=== PATIENT | female | born 1955 | race Caucasian/White ===

== ENCOUNTER 2018-06-30 01:55 | Outpatient (CLI) | payer BC, SELFPAY ==
--- NOTE | 2018-06-30 11:20 | DI.MAMMO_ITS ---
SYMPTOM/DIAGNOSIS: SCREENING, Z12.31 MAMMOGRAMS: Mammograms were interpreted according to the usual protocol including computer analysis with CAD system, tomosynthesis and C view imaging. Comparison is made with exams from [id number]. The breasts are composed of scattered fibroglandular densities. No suspicious masses or suspicious microcalcifications are seen. There has been no significant change. IMPRESSION: Category 1B, negative mammogram. Yearly screening mammography is recommended. SA ASSESSMENT OF FINDINGS: Negative. Category 1. Patient will receive a letter notifying them of these results. BI-RADS category B. There are scattered areas of fibroglandular density.
== END 2018-06-30 02:15 ==
PROVIDERS: PCP Family Medicine; Visit Provider Family Medicine
DX: Z12.31 Encounter for screening mammogram for malignant neoplasm of breast (principal)
CPT/HCPCS: 77063; 77067

== ENCOUNTER 2018-11-05 09:35 | Outpatient (REF) | payer OTHER, SELFPAY ==
--- NOTE | 2018-11-05 08:30 | PAPFT_PTH ---
PATIENT: Jade Oro LOC: [facility] U#:[id number] AGE/SX: 62/F ROOM: RE11/05/[address]: Angélica Koch : 1955 BED: DIS: 11/05/2018 SPEC #: [id number] RECD: 11/05/18 12:23 STATUS: DAVID REKeshia #: [id number] WINSTON: 11/05/18 08:[address]: Angélica Koch DEPT: REPLACED BY [facility] Cytology RECD BY: Radha Cain Tissues: 1 - CX/ENDOCX FOR PAP SMEARS Procedures: PAP THIN PREP/[facility] Screening HPV DNA PROBE Comments: [id number]
[2018-11-05 12:40] LABS: HCT 38.9 % (36.0-46.0); HGB 12.9 g/dL (12.0-15.5); Mean Corp. HGB Concentration 33.2 g/dL (32.0-36.0); Mean Corpuscular Hemoglobin 31.5 pg (27.0-33.0); Mean Corpuscular Volume 94.9 fL (80-95); Mean Platelet Volume 10.5 fL (8.0-11.0); Platelet Count 212 x1000/uL (130-400); RBC Distribution Width 12.9 % (11.7-14.6); White Blood Cell Count 7.59 k/cumm (4.4-10.8)
[2018-11-05 13:01] LABS: COMMENT (LAB VIEW ONLY) 120.05 mg/dL; Microalb ug/mg Crea 193.8 ug/mg Cr
[2018-11-05 13:06] LABS: ALT 51 U/L (12-78); AST 30 U/L (15-37); Albumin 4.2 g/dL (3.4-5.0); Alkaline Phosphatase 87 U/L (46-116); BUN 25 mg/dL (7-18); Bilirubin, Total 0.2 mg/dL (0.2-1.0); CREATININE 1.11 mg/dL (0.55-1.02); Calcium 9.9 mg/dL (8.5-10.1); Chloride 101 mmol/L (98-107); Estimated GFR 49.64 (mL/min/1.73m2); Glucose 233 mg/dL (70-100); Potassium 5.2 mmol/L (3.5-5.1); Sodium 139 mmol/L (136-145); TSH (W/Ref FT4) 5.49 uIU/mL (0.358-3.74); Total Protein 7.8 g/dL (6.4-8.2); Vitamin B12 287 pg/mL (193-986)
== END 2018-11-05 09:55 ==
LOC: NCHCN 09:35
PROVIDERS: PCP Family Medicine; Visit Provider Family Medicine
DX: R53.83 Other fatigue (principal); E11.65 Type 2 diabetes mellitus with hyperglycemia; Z12.4 Encounter for screening for malignant neoplasm of cervix; Z11.51 Encounter for screening for human papillomavirus (HPV)
CPT/HCPCS: 80053; 82306; 85027; 88142; 82043; 82570; 82607; 84439; 84443; 87624

== ENCOUNTER 2019-09-16 13:34 | Outpatient (REF) | payer OTHER, SELFPAY ==
[2019-09-16 19:06] LABS: Microalb ug/mg Crea 95.6 ug/mg Cr
== END 2019-09-16 13:54 ==
LOC: NCHCN 13:34
PROVIDERS: PCP Family Medicine; Visit Provider Family Medicine
DX: E11.65 Type 2 diabetes mellitus with hyperglycemia (principal)
CPT/HCPCS: 82043; 82570

== ENCOUNTER 2020-01-11 02:27 | Outpatient (CLI) | payer OTHER, SELFPAY ==
[2020-01-11 12:23] LABS: HCT 37.7 % (36.0-46.0); HGB 12.6 g/dL (12.0-15.5); Mean Corp. HGB Concentration 33.4 g/dL (32.0-36.0); Mean Corpuscular Hemoglobin 30.7 pg (27.0-33.0); Mean Corpuscular Volume 91.7 fL (80-95); Mean Platelet Volume 9.7 fL (8.0-11.0); Platelet Count 235 x1000/uL (130-400); RBC 4.11 m/cumm (4.00-5.20); RBC Distribution Width 12.3 % (11.7-14.6); White Blood Cell Count 6.22 k/cumm (4.4-10.8)
[2020-01-11 13:09] LABS: Hemoglobin A1C 9.7 % (3.8-5.6)
[2020-01-11 14:46] LABS: Anion Gap 9.4 mmol/L (3-11); BUN 23 mg/dL (7-18); CO2 26.6 mmol/L (21.0-32.0); CREATININE 1.06 mg/dL (0.55-1.02); Calcium 9.6 mg/dL (8.5-10.1); Calculated LDL 74 mg/dL (<100); Chloride 102 mmol/L (98-107); Cholesterol 136 mg/dL (<200); Estimated GFR 52.03 (mL/min/1.73m2); Glucose 226 mg/dL (74-106); HDL Cholesterol 36 mg/dL (40-60); Sodium 138 mmol/L (136-145); TSH (W/Ref FT4) 2.12 uIU/mL (0.36-3.74); Triglyceride 134 mg/dL (<150)
== END 2020-01-11 02:47 ==
PROVIDERS: PCP Family Medicine; Visit Provider Family Medicine
DX: E03.9 Hypothyroidism, unspecified (principal); E11.65 Type 2 diabetes mellitus with hyperglycemia; E78.5 Hyperlipidemia, unspecified; I10 Essential (primary) hypertension; N18.3 Chronic kidney disease, stage 3 (moderate)
CPT/HCPCS: 36415; 80048; 80061; 85027; 83036; 84443

== ENCOUNTER 2020-01-12 16:30 | Outpatient (REF) | payer OTHER, SELFPAY ==
[2020-01-12 20:39] LABS: Vitamin B12 496 pg/mL (193-986)
== END 2020-01-12 16:50 ==
LOC: NCHCN 16:30
PROVIDERS: PCP Family Medicine; Visit Provider Family Medicine
DX: E53.8 Deficiency of other specified B group vitamins (principal)
CPT/HCPCS: 82607

== ENCOUNTER 2020-02-07 01:25 | Outpatient (CLI) | payer OTHER, SELFPAY ==
--- NOTE | 2020-02-07 | DI.MAMMO_ITS ---
EXAM: MAMMO SCREENING CLINICAL HISTORY: SCREENING,Z12.31 TECHNIQUE: Mammograms were interpreted according to the usual protocol including computer analysis w [employer] CAD system, tomosynthesis and C-view imaging. COMPARISON: 2013 through 2017 FINDINGS: The breasts are composed of scattered fibroglandular densities, Breast Density category B. No suspicious masses or suspicious microcalcifications are seen. No skin thickening or abnormal axillary lymph nodes are seen. There has been no significant change from prior exams. IMPRESSION: BI-RADS Category 1, negative mammogram. Yearly screening mammography is recommended. Breast Density Category B, scattered fibroglandular densities.
== END 2020-02-07 01:45 ==
PROVIDERS: PCP Family Medicine; Visit Provider Family Medicine
DX: Z12.31 Encounter for screening mammogram for malignant neoplasm of breast (principal); R92.2 Inconclusive mammogram
CPT/HCPCS: 77063; 77067

== ENCOUNTER 2020-08-04 02:24 | Outpatient (CLI) | payer OTHER, SELFPAY ==
[2020-08-04 07:44] LABS: Hemoglobin A1C 6.7 % (<5.7)
[2020-08-04 08:48] LABS: Anion Gap 13.1 mmol/L (3-11); BUN 21 mg/dL (7-18); CO2 27.9 mmol/L (21.0-32.0); CREATININE 0.96 mg/dL (0.55-1.02); Calcium 8.8 mg/dL (8.5-10.1); Chloride 101 mmol/L (98-107); Estimated GFR 58.33 (mL/min/1.73m2); Glucose 108 mg/dL (74-106); Potassium 4.2 mmol/L (3.5-5.1); Sodium 142 mmol/L (136-145); TSH (W/Ref FT4) 1.03 uIU/mL (0.36-3.74)
== END 2020-08-04 02:44 ==
PROVIDERS: PCP Family Medicine; Visit Provider Family Medicine
DX: I10 Essential (primary) hypertension (principal); E11.65 Type 2 diabetes mellitus with hyperglycemia; E03.9 Hypothyroidism, unspecified
CPT/HCPCS: 36415; 80048; 83036; 84443

== ENCOUNTER 2021-08-29 15:21 | Outpatient (REF) | payer OTHER, SELFPAY ==
[2021-08-29 20:05] LABS: COMMENT (LAB VIEW ONLY) 232.57 mg/dL
[2021-08-29 20:11] LABS: Anion Gap 9.3 mmol/L (3-11); BUN 21 mg/dL (7-18); CO2 29.7 mmol/L (21.0-32.0); CREATININE 0.9 mg/dL (0.55-1.02); Calcium 9.7 mg/dL (8.5-10.1); Chloride 97 mmol/L (98-107); Glucose 99 mg/dL (74-106); Potassium 4.1 mmol/L (3.5-5.1); Sodium 136 mmol/L (136-145); TSH (W/Ref FT4) 3.01 uIU/mL (0.36-3.74)
[2021-08-29 20:40] LABS: Microalb ug/mg Crea 254.5 ug/mg Cr
[2021-08-31 10:52] LABS: HIV-1/2 Ag & Ab Screen Negative (Negative)
== END 2021-08-29 15:22 | disposition home or self-care (01) ==
LOC: NCHCN 15:21
PROVIDERS: PCP Family Medicine; Visit Provider Family Medicine
DX: E11.9 Type 2 diabetes mellitus without complications (principal); I10 Essential (primary) hypertension; E03.9 Hypothyroidism, unspecified; N18.30 Chronic kidney disease, stage 3 unspecified; Z00.00 Encounter for general adult medical examination without abnormal findings; Z11.4 Encounter for screening for human immunodeficiency virus [HIV]
CPT/HCPCS: 80048; 87389; 82043; 82570; 84443

== ENCOUNTER → 2021-12-07 00:38 | Outpatient (CLI) | payer OTHER, SELFPAY ==
--- NOTE | 2021-12-07 | DI.MAMMO_ITS ---
Exam(s) MAMMO SCREENING EXAM: MAMMO SCREENING CLINICAL HISTORY: SCREENING, Z12.31 TECHNIQUE: Mammograms were interpreted according to the usual protocol including computer analysis w [employer] CAD system, tomosynthesis and C-view imaging. COMPARISON: 2013 through 2019 FINDINGS: The breasts are composed of scattered fibroglandular densities, Breast Density category B. No suspicious masses or suspicious microcalcifications are seen. No skin thickening or abnormal axillary lymph nodes are seen. There has been no significant change from prior exams. IMPRESSION: BI-RADS Category 1, Negative mammogram Yearly screening mammography is recommended. Breast Density - Category B, scattered fibroglandular densities. A negative radiographic report should not delay biopsy if a dominant or clinically suspicious mass is present. Up to ten percent of cancers are not identified on mammography. A negative report may reinforce clinical impression. Adenosis and dense breasts may obscure an underlying neoplasm. False positive reports average 6 to 10%. Patient will receive a letter notifying them of these results.
== END ==
PROVIDERS: PCP Family Medicine; Visit Provider Family Medicine
DX: Z12.31 Encounter for screening mammogram for malignant neoplasm of breast (principal)
CPT/HCPCS: 77063; 77067

== ENCOUNTER 2022-01-24 01:38 | Outpatient (CLI) | payer OTHER, SELFPAY ==
--- NOTE | 2022-01-24 07:30 | DI.US_ITS ---
APPROVED REPORT EXAM: Comprehensive 2D, Doppler, and color-flow Echocardiogram Patient Location: Out-Patient Human Resources Office Assistant: Kmi Davis RDCS (AE) Indications: Bicuspid aortic valve, Moderate Other Information Study Quality: Adequate Conclusion Normal left ventricular chamber size and wall thickness. Estimated ejection fraction is 60%. Wall m otion is normal Normal right ventricular size and systolic function Both atria are normal in size Aortic valve is calcified. Number of leaflets could not be accurately determined. There is moderate to severe aortic stenosis. Peak gradient is 65, mean 37, calculated aortic valve area of 0.9 to 1 c m??. There is mild to moderate aortic regurgitation Mild mitral annular calcification. Trace mitral regurgitation Normal tricuspid valve with mild regurgitation. Estimated right ventricular systolic pressure is 29 mmHg Dilated ascending aorta measuring 3.77 cm Wall motion Left Ventricle The left ventricle is normal size. The left ventricular systolic function is normal. The left ventric ular ejection fraction is within the normal range. There is normal left ventricular wall thickness. T here is normal LV segmental wall motion. There is no ventricular septal defect visualized. LVEF is 60 %. Right Ventricle The right ventricle is normal size. The right ventricular systolic function is normal. The RVSP is 29 .3 mmHg. Atria The left atrium size is normal. The right atrium size is normal. The interatrial septum is intact wit h no evidence for an atrial septal defect. Aortic Valve Aortic valve is calcified. Number of aortic valve leaflets could not be assessed. Moderate to severe aortic stenosis. Peak aortic valve gradient is 65 mmHg. Highest mean aortic valve gradient is 37 mmHg . Calculated KYRIE by the continuity equation is 0.9 to 1.0cm2. Mild to moderate aortic regurgitation. Mitral Valve Mild mitral annular calcification. No evidence of mitral valve stenosis. Trace mitral regurgitation. Tricuspid Valve The tricuspid valve is normal in structure. There is no tricuspid valve stenosis. Mild tricuspid regu rgitation. Pulmonic Valve The pulmonary valve is normal in structure. There is no pulmonic valvular stenosis. Trace pulmonic re gurgitation. Great Vessels The aortic root is normal in size. The ascending aorta is moderately dilated.3.77 cm Aortic arch is n ormal in caliber. IVC is normal in size and collapses >50% with inspiration. Pericardium There is no pericardial effusion. 2D Dimensions IVSD d PLAX 1.00 cm F: 0.6-1.0 LV Vol A2C d MOD 89.4 mL LVPW d PLAX 1.01 cm F: 0.6 - 1.0 LV Vol A4C d MOD 94.1 mL LVID d PLAX 4.55 cm F: 3.8 - 5.2 LA vol/ BSA A2C s A-L 28.5 mL/m2 LVDs 3.05 cm F: 2.2 - 3.5 LA vol/ BSA A4C s A-L 24.0 mL/m2 Ao Root d 2.77 cm F: 2.7 - 3.3 LA Vol/ BSA Biplane s A-L 26.8 mL/m2 RA Area A4C 14.82 cm2 LA Area A4C s MOD 15.19 cm2 RA Vol/ BSA A4C s A-L 23.5 mL/m2 LA Area A2C s MOD 16.20 cm2 Ao Asc Diam d 3.77 cm F: 2.3 - 3.1 LV EF A4C MOD 60.2 % LV EF Teichholz 61.2 % LV EF A2C MOD 60.7 % LVEF (Sánchez's) 60.64 % F: 54 - 74 LV EF Biplane MOD 60.6 % LV Volume 75.45 mL F: 46 - 106 SV 57.05 mL LV Volume Index 45.72 mL/m2 F: 29 - 61 SV Index 34.45 mL/m2 LV Vol Biplane MOD 94.1 mL FS 32.70 % M-Mode TAPSE 1.93 cm (M/F) >1.7 LV Diastology MV E' medial 0.070 (>0.07 m/s) E/A Ratio 0.8 LV E/e MED 12.50 (<14) MV E Vmax 0.87 (0.4-1.3 m/s) MV E' lateral 0.064 (>0.1 m/s) MV A Vmax 1.05 (0.4-1.3 m/s) LV E/e LAT 13.70 (<14) MV E/A Ratio 0.80 MV E/E' medial 12.52 MV E/E' lateral 13.73 Aortic Valve LVOT Area 3.42 cm2 AoV Area Vmax 1.02 cm2 LVOT Vmax 1.13 m/s AoV Area/ BSA (Vmax) 0.61 cm2/m2 LVOT Mean Collins. 0.75 m/s KYRIE Mean Collins. 0.94 cm2 LVOT Peak Grad 5.1 mmHg KYRIE Mean Collins. Index 0.57 cm2/m2 LVOT Mean Grad 2.6 mmHg AR DT 2549 msec LVOT VTI 0.296 m AR PHT 739 msec LVOT Diam s 2.05 cm AoV Vmax 3.81 m/s Velocity Ratio 0.29 AoV Mean Collins. 2.72 m/s AoV Peak Grad 58.2 mmHg LVOT SV 101.26 mL AoV Mean Grad 33.2 mmHg AoV VTI 0.944 m AoV Area VTI 1.07 cm2 AoV Area/ BSA (VTI) 0.65 cm/m2 Mitral Valve MV DT 308 (160-240 msec) MV PHT 89 msec MV Area PHT 2.46 cm2 MV VTI 0.395 m MV Area VTI 2.56 (4.0-6.0 cm2) Pulmonary Valve PV Vmax 0.88 (0.5-1.5 m/s) RVOT Peak Gr. 1.57 mmHg PV Peak Grad 3.1 mmHg RVOT Mean Gr. 0.75 mmHg PV Mean Grad 1.8 mmHg RVOT VTI 0.147 m PV VTI 0.225 m RVOT Vmax 0.63 m/s Tricuspid Valve TR Peak Grad 26.3 mmHg TR Vmax 2.57 m/s RA Pressure 3.00 mmHg RVSP (TR) 29.3 mmHg
--- NOTE | 2022-01-24 07:44 | DI.CTLCSR_ITS ---
Exam(s) CT CHEST LUNG CANCER SCREEN EXAM: CT CHEST LUNG CANCER SCREEN CLINICAL HISTORY: CIGARETTE SMOKER, F17.210; TOBACCO USE, Z72.0 TECHNIQUE: Imaging Protocol: Axial computed tomography images with coronal and sagittal reformatted images were created and reviewed COMPARISON: CT CHEST - LUNG CANCER SCREENING from 02/14/2016 FINDINGS: Tracheobronchial tree: Patent where visualized. Pulmonary parenchyma: No focal consolidations. Mild emphysematous changes are present in the lungs. Lung Nodules: There is an 8.7 mm spiculated nodule in the right upper lobe. There is a 3.7 mm nodule in the medial aspect of the right lower lobe. Mediastinum and Raina: No dominant adenopathy or fluid collection. The esophagus is unremarkable. Thyroid gland: Unremarkable. Lymph nodes: Unremarkable. Pleura: No effusion or pneumothorax. Heart: The heart is not dilated. Coronary artery calcifications are present. No pericardial effusion . Aorta: Thoracic aorta non-dilated.Atherosclerosis is present. Upper abdomen: A cyst is again seen in the superior pole of the right kidney. Soft Tissues: Unremarkable. Bones: Within normal limits. IMPRESSION: 1. 8.7 mm spiculated nodule in the right upper lobe. 2. 3.7 mm nodule in the medial aspect of the right lower lobe. Lung RADS Cat 4B - Suspicious: Findings for which additional diagnostic testing and/or tissue samplin g is recommended Lung-RADS 1.0 CATEGORIES: Category 0 - Prior chest CT exam(s) being located for comparison. Category 1 - Annual screening in 12 months. No nodules or definitely benign nodules. Category 2 - Annual screening in 12 months. Benign appearance. Nodules with low likelihood of becomin g active cancer. Category 3 - 6-month follow-up. Probably benign. Short-term follow-up suggested. Nodules with low lik elihood of becoming active cancer. Category 4A - 3-month follow-up and CT/PET if >8 mm in size. Suspicious finding. Findings which requi re additional testing. Category 4B - Findings which require additional testing and tissue sampling. Suspicious finding. Category 4X - Category 3 or 4 nodules with additional features or imaging findings that increases the suspicion of malignancy. Modifier S- Potentially clinically significant finding. (Non lung cancer) RADIATION DOSE DELIVERED: 73mGy.cm Total DLP 1.84mGy CTDIvol 73mGy.cm Total DLP 1.84mGy CTDIvol DATA REPOSITORY: All CT scans at this facility are submitted to the National Radiology Data Registry (NRDR) Dose Index Registry (DIR) with the [employer] (ACR). RADIATION OPTIMIZATION: All CT scans at this facility use at least one of these dose optimization te chniques: automated exposure control; mA and/or kV adjustment per patient size (includes targeted exa ms where dose is matched to clinical indication); or iterative reconstruction.
--- NOTE | 2022-01-24 09:00 | DI.DEXA_ITS ---
Exam(s) XR DEXA BONE DENSITY W/WO GRACIE EXAM: XR DEXA BONE DENSITY W/WO GRACIE CLINICAL HISTORY: MENOPAUSAL, Z78.0 TECHNIQUE: COMPARISON: No exams were available for comparison FINDINGS: Lateral Spine Image: Unremarkable. No compression deformities identified. Left hip: Total T-Score: -3.1 Total Z-Score: -1.7 T- and Z-scores: Findings are consistent with osteoporosis. Lumbar Spine: Total T-Score: -0.8 Total Z-Score: 1.1 T- and Z-scores: Within normal limits. IMPRESSION: Osteoporosis in the left hip.
== END 2022-01-24 01:58 ==
PROVIDERS: PCP Family Medicine; Visit Provider Family Medicine
DX: Q23.1 Congenital insufficiency of aortic valve (principal); F17.210 Nicotine dependence, cigarettes, uncomplicated; Z78.0 Asymptomatic menopausal state; M81.0 Age-related osteoporosis without current pathological fracture; Z12.2 Encounter for screening for malignant neoplasm of respiratory organs; R91.8 Other nonspecific abnormal finding of lung field
CPT/HCPCS: 71271; 77080; 93306

== ENCOUNTER → 2022-04-18 12:46 | Outpatient (BNVA) | payer OTHER, SELFPAY | PROVIDERS: PCP Family Medicine; Referring Provider Family Medicine; Visit Provider Internal Medicine Cardiovascular Disease | DX: Q23.1 Congenital insufficiency of aortic valve (principal) | CPT/HCPCS: 93005; 99203 ==

== ENCOUNTER 2022-04-18 12:58 | Outpatient (CLI) | payer OTHER, SELFPAY ==
--- NOTE | 2022-04-18 12:45 | RT.EKG_ITS ---
APPROVED REPORT Exam: Resting ECG Reason for Exam: NPW, Baseline needed Patient Location: O HR:70 bpm ECG Measurements Heart Rate 70 AXIS OK 163 P 51 QRSd 84 QRS 3 QT 399 T 67 QTc 431 Conclusion Sinus rhythm...normal P axis, V-rate 50- 99 Normal Electrocardiogram
== END 2022-04-18 12:59 | disposition home or self-care (01) ==
LOC: DI.CARD 12:59
PROVIDERS: PCP Family Medicine; Visit Provider Internal Medicine Cardiovascular Disease
DX: I10 Essential (primary) hypertension (principal); I35.1 Nonrheumatic aortic (valve) insufficiency; Q23.1 Congenital insufficiency of aortic valve
CPT/HCPCS: 93010

== ENCOUNTER 2022-05-03 01:03 | Outpatient (CLI) | payer OTHER, SELFPAY ==
--- NOTE | 2022-05-03 08:00 | DI.US_ITS ---
Exam(s) US SOFT TISSUE HEAD OR NECK EXAM: US SOFT TISSUE HEAD OR NECK CLINICAL HISTORY: Left sided enlarged lymph node on PET scan,r59.0. TECHNIQUE: Ultrasound was performed of the area of clinical concern in the left side of the neck COMPARISON: None FINDINGS: There is a 15 x 7 x 11 millimeter predominantly cystic appearing mass in the superficial aspect of th e left parotid gland. There does not appear to be adenopathy in left side of the neck. Multiple small lymph nodes are seen in the right-side of the neck, largest measuring 12 x 7 millimeters. IMPRESSION: There is a lobulated 15 x 7 x 11 millimeter mass in the superficial lobe of left parotid gland which appears predominantly cystic. Recommend further imaging such as contrast infused MRI of the soft tis sues of the neck for added specificity as to whether this is a pleomorphic adenoma or other type of p athology in the parotid gland. DATA REPOSITORY:
== END 2022-05-03 01:23 ==
LOC: DI 01:03
PROVIDERS: PCP Family Medicine; Visit Provider Registered Nurse Maternal Newborn
DX: R59.0 Localized enlarged lymph nodes (principal)
CPT/HCPCS: 76536

== ENCOUNTER 2022-05-28 02:55 | Outpatient (CLI) | payer OTHER, SELFPAY ==
--- NOTE | 2022-05-28 | DI.CT_ITS ---
Exam(s) CT CHEST WO EXAM: CT CHEST WO CLINICAL HISTORY: LUNG NODULE, R91.8, SMOKER, TOO SMALL TO BIOPSY. TECHNIQUE: Multi planar reconstructions were performed. CONTRAST MATERIAL: None COMPARISON: CT CT CHEST LUNG CANCER SCREEN from 01/24/2022 FINDINGS: CHEST: LUNGS: The previously described 8-9 millimeter spiculated nodule in the right upper lobe is unchanged . Smaller nodule in the posterior basal segment of the right lower lobe is also unchanged. On the p resent study there is a very subtle ground-glass nodular infiltrate in the right upper lobe measuring 7 x 6 mm. This is also unchanged. There are no new additional right lung findings. No left lung f indings. No pleural effusions. MEDIASTINUM: There is no obvious hilar nor mediastinal adenopathy. Visualized thyroid unremarkable.No obvious axillary adenopathy CARDIAC: Heart size is normal. There is no pericardial effusion.Caliber of the thoracic aorta is wit hin normal limits. VISUALIZED UPPER ABDOMEN:There is a cyst in the superior pole of the right kidney again noted measuri ng 2.5 x 2.5 cm. No new significant adrenal masses. No splenomegaly. OSSEOUS: No significant osseous lesions.. IMPRESSION: 1. Stable appearance of the 8-9 millimeters spiculated nodule in the right upper lobe, unchanged from 01/24/2022. Other findings in the right lung as described above are also unchanged. There are no n ew additional lung nodules. The spiculated 8-9 millimeter nodule requires close follow-up. 2. No pleural effusions nor intrathoracic adenopathy. RADIATION DOSE DELIVERED: 399.92mGy.cm Total DLP DATA REPOSITORY: All CT scans at this facility are submitted to the National Radiology Data Registry (NRDR) Dose Index Registry (DIR) with the [employer] (ACR). RADIATION OPTIMIZATION: All CT scans at this facility use at least one of these dose optimization te chniques: automated exposure control; mA and/or kV adjustment per patient size (includes targeted exa ms where dose is matched to clinical indication); or iterative reconstruction.
== END 2022-05-28 03:15 ==
LOC: DI 02:55
PROVIDERS: PCP Family Medicine; Visit Provider Family Medicine
DX: R91.1 Solitary pulmonary nodule (principal)
CPT/HCPCS: 71250

== ENCOUNTER 2022-06-04 02:11 | Outpatient (CLI) | payer OTHER, SELFPAY ==
--- NOTE | 2022-06-04 07:30 | DI.US_ITS ---
Exam(s) US NEEDLE LOCAL OTHER WO RAD EXAM: Left parotid gland mass,ultrasound guided bx,k11.8 COMPARISON: No exams were available for comparison TECHNIQUE: Ultrasound performed using standard protocol. FINDINGS: Sonography was provided for Dr. Reed during the performance of a ultrasound-guided left parotid ma ss FNA. Please refer to the procedure report for complete details. DATA REPOSITORY:
--- NOTE | 2022-06-04 11:30 | PAPNONF_PTH ---
PATIENT: Jade Oro LOC: [facility] U#:[id number] AGE/SX: 66/F ROOM: RE06/04/[address]: Neal Reed MD : 1955 BED: DIS: 06/04/2022 SPEC #: [id number] RECD: 06/04/22 13:07 STATUS: DAVID REKeshia #: [id number] WINSTON: 06/04/22 11:[address]: Neal Reed DEPT: [facility] Cytology RECD BY: Joana Norrsi ENTERED: 06/04/22 13:08 SP TYPE: ISABELL QUIÑONEZ DR: Angélica Koch Tissues: 1 - BODY FLUID CYTO-FINE NEEDLE ASPIRATE-[facility] Procedures: BODY FLUID CYTO-FINE NEEDLE ASPIRATE-[facility] Comments: [id number] (PATH FNA CONSULT) (REFRIGERATED)
--- NOTE | 2022-06-04 11:41 | OPPNE_ITS ---
Date of service: 06/04/22 Time of Service: 11:41 Procedure Note Date of procedure: 06/04/22 Procedure: Ultrasound-guided FNA, left parotid gland lesion, pathology available Surgeon/Proceduralist/Physician: Neal Reed Procedure Diagnosis: Left parotid mass Procedure Indications: Patient has a left parotid mass of unclear etiology and significance. Options were explained to the family regarding further management. She elected undergo the below procedure. Consent was filled out and signed prior to procedure Procedure Description: The patient was positioned in a supine position with her head turned to the right. She was prepped and draped in appropriate fashion. Ultrasound was used to localize the hypoechoic lesion in her left parotid gland. 1% lidocaine with 1/100,000 epinephrine was injected into the skin and subcutaneous tissues over the left parotid lesion and then a 25-gauge needle passed into the mass rep eatedly. The mass was found to contain clear saliva like secretions,. Attempts to capture the outer edge of the mass were also made with the needle. The specimen was handed off to pathology who evaluated it under the microscope and found to be composed of some bland looking salivary tissue and mostly lymphocytes. After discussion with the patient the decision was made not to perform any further passes. Wound was inspected for relative hemostasis. The patient was allowed to sit and stand and demonstrated stability of her vital signs. No dressing was necessary as there was no bleeding. There was no bruising. She is to call if she does not hear from me within 1 week. She had no further questions. She is comfortable with the plan. She will call with any interval problems.
== END 2022-06-04 02:31 ==
LOC: DI 02:11
PROVIDERS: PCP Family Medicine; Visit Provider Otolaryngology
DX: D11.0 Benign neoplasm of parotid gland
CPT/HCPCS: 10005; 76942; 88104

== ENCOUNTER 2022-08-28 01:05 | Outpatient (CLI) | payer OTHER, SELFPAY ==
--- NOTE | 2022-08-28 | DI.CT_ITS ---
Exam(s) CT CHEST WO EXAM: CT CHEST WO CLINICAL HISTORY: LUNG NODULE, R91.8, OPEN BIOPSY RECOMMENDED PT DECLINED, 3 MO F/U TECHNIQUE: Imaging Protocol: Axial computed tomography images with coronal and sagittal reformatted images were created and reviewed CONTRAST MATERIAL: Noncontrast. COMPARISON: CT CHEST - LUNG CANCER SCREENING from 02/14/[address] CHEST LUNG CANCER SCREEN from 01/24/2022 CT,PT PET CT EYE TO THIGH from 03/12/[address] CHEST WO from 05/28/2022 FINDINGS: Pulmonary parenchyma: No consolidation. Has been no change in size or appearance of the previously no joanne subscap solid spiculated density in the right upper lobe compared with the January and June 04 e xams. There are few other tiny scattered nodules at the lung bases. Tracheobronchial tree: No bronchiectasis or mucous plugging. Mediastinum and Raina: No dominant adenopathy or fluid collection. Mild emphysematous changes. Pleura: No effusion or pneumothorax. Heart: The heart is not dilated. coronary artery calcifications are seen. Aortic valve calcificati ons. Aorta: Thoracic aorta non-dilated. Upper abdomen: Unremarkable. Bones: Degenerative changes. Soft tissues: Unremarkable. IMPRESSION: Stable subsolid spiculated lesion in the right upper lobe. This showed mild PET avidity on prior PET scan. Additional three-month follow-up CT recommended. RADIATION DOSE DELIVERED: 439.75mGy.cm Total DLP DATA REPOSITORY: All CT scans at this facility are submitted to the National Radiology Data Registry (NRDR) Dose Index Registry (DIR) with the [employer] (ACR). RADIATION OPTIMIZATION: All CT scans at this facility use at least one of these dose optimization te chniques: automated exposure control; mA and/or kV adjustment per patient size (includes targeted exa ms where dose is matched to clinical indication); or iterative reconstruction.
== END 2022-08-28 01:25 ==
LOC: DI 01:06
PROVIDERS: PCP Family Medicine; Visit Provider Family Medicine
DX: R91.8 Other nonspecific abnormal finding of lung field (principal)
CPT/HCPCS: 71250

== ENCOUNTER 2022-11-20 18:16 | Outpatient (REF) | payer OTHER, SELFPAY ==
[2022-11-20 18:15] LABS: Hemoglobin A1C 7.7 % (<5.7)
[2022-11-20 18:23] LABS: ALT 32 U/L (14-59); AST 25 U/L (15-37); Albumin 3.8 g/dL (3.4-5.0); Alkaline Phosphatase 86 U/L (46-116); BUN 37 mg/dL (7-18); Bilirubin, Total 0.2 mg/dL (0.2-1.0); CREATININE 1.2 mg/dL (0.55-1.02); Calcium 9.2 mg/dL (8.5-10.1); Chloride 101 mmol/L (98-107); Estimated GFR 49.61 (mL/min/1.73m2); Glucose 212 mg/dL (74-106); Potassium 5.1 mmol/L (3.5-5.1); Sodium 136 mmol/L (136-145); TSH (W/Ref FT4) 1.23 uIU/mL (0.36-3.74); Total Protein 7.4 g/dL (6.4-8.2)
[2022-11-20 18:58] LABS: Vitamin D 25 Total 56.3 ng/mL (30-100)
[2022-11-21 19:39] LABS: Parathyroid Hormone,Intact 37 pg/mL (19-88)
== END 2022-11-20 18:17 | disposition home or self-care (01) ==
LOC: NCHCN 18:16
PROVIDERS: PCP Family Medicine; Visit Provider Family Medicine
DX: E11.9 Type 2 diabetes mellitus without complications (principal); N18.30 Chronic kidney disease, stage 3 unspecified; E03.9 Hypothyroidism, unspecified
CPT/HCPCS: 80053; 82306; 83036; 83970; 84443

== ENCOUNTER 2022-12-04 08:43 | Outpatient (REF) | payer OTHER, SELFPAY ==
[2022-12-04 20:23] LABS: COMMENT (LAB VIEW ONLY) 111.98 mg/dL
[2022-12-04 20:25] LABS: Microalb ug/mg Crea 155.6 ug/mg Cr
== END 2022-12-04 08:44 | disposition home or self-care (01) ==
LOC: NCHCN 08:43
PROVIDERS: PCP Family Medicine; Visit Provider Family Medicine
DX: E11.9 Type 2 diabetes mellitus without complications (principal); E03.9 Hypothyroidism, unspecified; N18.30 Chronic kidney disease, stage 3 unspecified
CPT/HCPCS: 82043; 82570

== ENCOUNTER 2023-01-29 01:50 | Outpatient (CLI) | payer OTHER, SELFPAY ==
--- NOTE | 2023-01-29 07:59 | DI.CT_ITS ---
Exam(s) CT CHEST WO EXAM: CT CHEST WO CLINICAL HISTORY: F/U LUNG NODULE, R91.8. TECHNIQUE: Imaging protocol: Axial computed tomography images were obtained and coronal and sagittal reformatted images were created and reviewed. CONTRAST MATERIAL: Noncontrast COMPARISON: CT CHEST - LUNG CANCER SCREENING from 02/14/[address] CHEST LUNG CANCER SCREEN from 01/24/2022 CR XR DEXA BONE DENSITY W/WO GRACIE from 01/24/2022 CT,PT PET CT EYE TO THIGH from 03/12/[address] CHEST WO from 08/28/2022 FINDINGS: Pulmonary parenchyma: No consolidation. Stable appearance of spiculated lesion in the right upper lob e compared with exams back to 24 January 2022. It was not present on the 2016 exam. Emphysema: None. Tracheobronchial tree: No mucous plugging. No bronchiectasis . Interstitial changes: None. Pleura: No effusion or pneumothorax. Heart: The heart is not dilated. The coronary arteries show mildcalcifications. Aorta: Ascending aorta 3.7 cm. Mildatherosclerotic changes. Lymph nodes: No enlarged lymph nodes. Bones: Minimal degenerative changes are seen. No evidence of compression fracture. Upper abdomen: Cyst upper pole right kidney. Soft tissues: Unremarkable. IMPRESSION: Stable appearance of spiculated lesion right upper lobe 1 year. Since it was not present on 2016 exa m, further six-month follow-up is recommended. RADIATION DOSE DELIVERED: Total DLP Total DLP DATA REPOSITORY: All CT scans at this facility are submitted to the National Radiology Data Registry (NRDR) Dose Index Registry (DIR) with the [employer] (ACR). RADIATION OPTIMIZATION: All CT scans at this facility use at least one of these dose optimization te chniques: automated exposure control; mA and/or kV adjustment per patient size (includes targeted exa ms where dose is matched to clinical indication); or iterative reconstruction.
== END 2023-01-29 02:10 ==
LOC: DI 01:51
PROVIDERS: PCP Family Medicine; Visit Provider Family Medicine
DX: R91.8 Other nonspecific abnormal finding of lung field (principal); Z12.2 Encounter for screening for malignant neoplasm of respiratory organs
CPT/HCPCS: 71250

== ENCOUNTER → 2023-04-10 02:42 | Outpatient (CLI) | payer OTHER, SELFPAY ==
--- NOTE | 2023-04-10 14:40 | DI.US_ITS ---
APPROVED REPORT EXAM: Comprehensive 2D, Doppler, and color-flow Echocardiogram Patient Location: Out-Patient Solar Sales Representative And Assessor: Jesus Lam RDCS (AE) Indications: aortic stenosis and regurgitation, bicuspid aortic valve Conclusion Mild concentric left ventricular hypertrophy. Ejection fraction is 60 to 65%. Wall motion is normal Normal right ventricular size and systolic function Both atria are normal in size Aortic valve is calcified and probably bicuspid. There is severe aortic stenosis. Peak gradient is 102, mean is 65 mmHg. Calculated aortic valve area 0.7 cm??. There is trace aortic regurgitation Normal mitral valve with mild regurgitation Tricuspid valve with trace regurgitation Dilated ascending aorta measuring 3.6 cm Wall motion Left Ventricle The left ventricle is normal size. The left ventricular systolic function is normal. The left ventric ular ejection fraction is within the normal range. Mild concentric left ventricular hypertrophy There is normal LV segmental wall motion. There is no ventricular septal defect visualized. LVEF is 65%. Right Ventricle The right ventricle is normal size. The right ventricular systolic function is normal. The RVSP is 23 .7 mmHg. Atria The left atrium size is normal. The right atrium size is normal. The interatrial septum is intact wit h no evidence for an atrial septal defect. Aortic Valve Aortic valve is calcified. Valve is probably bicuspid Severe aortic stenosis. Peak aortic valve gradi ent is 102.04 mmHg. Highest mean aortic valve gradient is 64.80 mmHg. Calculated KYRIE by the continuit y equation is 0.7 cm2. Trace aortic regurgitation. Mitral Valve The mitral valve is normal in structure. No evidence of mitral valve stenosis. Mild mitral regurgitat ion. Tricuspid Valve The tricuspid valve is normal in structure. There is no tricuspid valve stenosis. Trace tricuspid reg urgitation. Pulmonic Valve The pulmonary valve is normal in structure. There is no pulmonic valvular stenosis. Mild pulmonic reg urgitation. Great Vessels Aortic root is mildly dilated. The ascending aorta is mildly dilated. Aortic arch is normal in calibe r. IVC is normal in size and collapses >50% with inspiration. Pericardium There is no pericardial effusion. 2D Dimensions IVSD d PLAX 0.94 cm F: 0.6-1.0 Ao Root d 3.58 cm F: 2.7 - 3.3 LVPW d PLAX 0.93 cm F: 0.6 - 1.0 Ao Asc Diam d 3.60 cm F: 2.3 - 3.1 LVID d PLAX 4.58 cm F: 3.8 - 5.2 LVDs 2.90 cm F: 2.2 - 3.5 LV EF Teichholz 66.6 % FS 36.73 % LV EDV (Teich) 96.5 mL LV ESV (Teich) 32.2 mL Stroke Vol Index (Teich) 38.49 M-Mode TAPSE 2.09 cm (M/F) >1.7 Auto EF LV EDV A4C 106.9 mL LV EDV A2C 107.9 mL LV EDV BP 111.6 mL LV ESV A4C 37.5 mL LV ESV A2C 38.0 mL LV ESV BP 38.4 mL LVEF(%) A4C 65.0 % LVEF(%) A2C 64.8 % LVEF(%) BP 65.5 % LV SV A4C 69.4 ml LV SV A2C 69.9 ml LV SV BP 73.2 ml LV CO A4C 4.9 L/min LV CO A2C 5.0 L/min LV CO BP 5.0 L/min HR A4C 70.73 BPM HR A2C 71.86 BPM LV EDV Index (BP) LA Volume LA Length A4C 4.9 cm LA Length A2C LA Area A4C s 10.50 cm2 LA Area A2C s LA Vol A4C A-L 19.28 mL LA Vol A2C A-L LA Vol Biplane A-L LA Vol A4C MOD 18.3 mL LA Vol A2C MOD LA Vol BP MOD RA Volume RA Area A4C 8.1 cm2 RA ESV A4C (A-L) 15.1mL RA Vol/BSA A4C A-L RA Length A4C 3.7 cm RA ESV A4C (MOD) 15.5mL LV Diastology MV E' medial 0.081 (>0.07 m/s) MV E Vmax 0.75 (0.4-1.3 m/s) MV E/E' MED 9.31 (<14) MV A Vmax 1.10 (0.4-1.3 m/s) MV E' lateral 0.086 (>0.1 m/s) E/A Ratio 0.7 MV E/E' LAT 8.73 (<14) MV E' Average 0.083 m/s MV E/E'(average) 9.01 Aortic Valve AoV Vmax 5.05 m/s LVOT Vmax 1.39 m/s AoV Peak Grad 72.6 mmHg LVOT Peak Grad 7.7 mmHg AoV Area (Vmax) 0.74 cm2 LVOT VTI 0.366 m AoV VTI 1.199 m LVOT Mean Grad 5.4 mmHg AoV Mean Collins. 3.86 m/s LVOT SV 98.86 mL AoV Mean Grad 64.8 mmHg LVOT Diam s 1.85 cm AoV Area (VTI) 0.82 cm2 AV Regurg Peak Gr. 43.20 mmHg Velocity Ratio 0.28 AR Decel [place] 2.4m/sec2 AR DT 1366 msec AR PHT 396 msec AR Vmax 3.29 m/s Mitral Valve MV DT 215 (160-240 msec) MV Vmax TIPS 1.04 m/s MV Mean Grad 2.2 (<2mmHg) MV VTI 0.391 m Pulmonary Valve PV Vmax 1.71 (0.5-1.5 m/s) RVOT Vmax 0.89 m/s PV Peak Grad 11.8 mmHg RVOT Peak Gr. 3.2 mmHg PV Mean Collins 1.27 m/s RVOT VTI 0.202 m PV Mean Grad 7.1 mmHg RVOT Mean Gr. 1.9 mmHg Tricuspid Valve RA Pressure 3.00 mmHg TR Vmax 2.27 m/s TR Peak Grad 20.6 mmHg RVSP (TR) 23.7 mmHg
== END ==
PROVIDERS: PCP Family Medicine; Visit Provider Internal Medicine Cardiovascular Disease
DX: Q23.1 Congenital insufficiency of aortic valve (principal)
CPT/HCPCS: 93306

== ENCOUNTER 2023-04-17 13:15 | Outpatient (CLI) | payer OTHER, SELFPAY ==
--- NOTE | 2023-04-17 13:30 | RT.EKG_ITS ---
APPROVED REPORT Exam: Resting ECG Reason for Exam: AR Patient Location: O HR:65 bpm ECG Measurements Heart Rate 65 AXIS MI 168 P 4 QRSd 89 QRS -12 QT 389 T 53 QTc 405 Conclusion Sinus rhythm...normal P axis, V-rate 50- 99 Normal Electrocardiogram
== END 2023-04-17 13:16 | disposition home or self-care (01) ==
PROVIDERS: PCP Family Medicine; Referring Provider Family Medicine; Visit Provider Internal Medicine Cardiovascular Disease
DX: I35.1 Nonrheumatic aortic (valve) insufficiency (principal)
CPT/HCPCS: 93010

== ENCOUNTER → 2023-04-17 13:15 | Outpatient (BNVA) | payer OTHER, SELFPAY | PROVIDERS: PCP Family Medicine; Referring Provider Family Medicine; Visit Provider Internal Medicine Cardiovascular Disease | DX: I35.1 Nonrheumatic aortic (valve) insufficiency (principal) | CPT/HCPCS: 93005; 99214 ==

== ENCOUNTER 2023-07-24 14:45 | Outpatient (REF) | payer OTHER, SELFPAY ==
[2023-07-23 20:36] LABS: Hemoglobin A1C 8.4 % (<5.7)
[2023-07-23 20:50] LABS: Anion Gap 10.8 mmol/L (3-11); BUN 28 mg/dL (7-18); CO2 26.2 mmol/L (21.0-32.0); CREATININE 1.1 mg/dL (0.55-1.02); Calcium 9.2 mg/dL (8.5-10.1); Calculated LDL 96 mg/dL (<100); Chloride 101 mmol/L (98-107); Cholesterol 170 mg/dL (<200); Estimated GFR 54.73 (mL/min/1.73m2); Glucose 147 mg/dL (74-106); HDL Cholesterol 55 mg/dL (40-60); NT-proBNP 350 pg/mL (<300); Potassium 4.9 mmol/L (3.5-5.1); Sodium 138 mmol/L (136-145); Triglyceride 95 mg/dL (<150); Vitamin B12 690 pg/mL (193-986)
== END 2023-07-24 14:46 | disposition home or self-care (01) ==
LOC: NCHCN 14:45
PROVIDERS: PCP Family Medicine; Visit Provider Family Medicine
DX: E78.5 Hyperlipidemia, unspecified (principal); E11.9 Type 2 diabetes mellitus without complications
CPT/HCPCS: 80048; 80061; 82607; 83036; 83880

== ENCOUNTER 2023-08-28 11:51 | Outpatient (REF) | payer OTHER, SELFPAY ==
[2023-08-28 15:45] LABS: Abs Immature Grans 0.03 10^3/uL (0.0-0.06); Absolute Basophil Count 0.05 10^3/uL (0.0-0.2); Absolute Eosinophil Count 0.14 10^3/uL (0.0-0.7); Absolute Lymphocyte Count 1.63 10^3/uL (1.2-3.4); Absolute Monocyte Count 0.77 10^3/uL (0.1-0.8); Absolute Neutrophil Count 4.11 10^3/uL (1.2-6.7); Basophils % 0.7; Eosinophils % 2.1; HCT 27.9 % (36.0-46.0); Immature Grans % 0.4; Lymphocytes % 24.2; MCH 21.8 pg (27.0-33.0); MCHC 28.7 % (32.0-36.0); MCV 76 fL (80-95); MPV 10.4 fL (8.0-11.0); Monocytes % 11.4; Neutrophils % 61.2; Platelet Count 295 10^3/uL (130-400); RBC 3.67 10^6/uL (3.93-5.22); RDW 16.3 % (11.7-14.6); RDW-SD 45.3 fL; WBC 6.73 10^3/uL (4.4-10.8)
[2023-08-28 16:28] LABS: Anisocytosis 1+; Diff Comment RBC Morph Reviewed
[2023-08-28 16:29] LABS: Hypochromasia 1+; Microcytosis 1+; Poikilocytes 1+
== END 2023-08-28 11:52 | disposition home or self-care (01) ==
LOC: NCHCN 11:51
PROVIDERS: PCP Family Medicine; Referring Provider Family Medicine; Visit Provider Family Medicine
DX: Z51.81 Encounter for therapeutic drug level monitoring (principal)
CPT/HCPCS: 85025

== ENCOUNTER 2023-09-03 12:53 | Outpatient (REF) | payer OTHER, SELFPAY ==
[2023-09-03 15:23] LABS: HCT 26.7 % (36.0-46.0); HGB 7.8 g/dL (11.2-15.7); MCH 21.8 pg (27.0-33.0); MPV 10.4 fL (8.0-11.0); Platelet Count 298 10^3/uL (130-400); RBC 3.58 10^6/uL (3.93-5.22); RDW-SD 45.9 fL; WBC 6.12 10^3/uL (4.4-10.8)
[2023-09-03 15:47] LABS: Iron 22 ug/dL (50-170); Total Iron Binding Capacity 454 ug/dL (250-450); Transferrin Sat 5 % (15-50)
[2023-09-03 15:55] LABS: MCHC 29.2 % (32.0-36.0); MCV 75 fL (80-95)
[2023-09-03 16:12] LABS: Ferritin 9 ng/mL (8-252); Folate 8.2 ng/mL (8.6-20.0); Vitamin B12 565 pg/mL (193-986)
[2023-09-04 10:40] LABS: IgA 250 mg/dL (85-499)
[2023-09-05 14:48] LABS: Tissue Transglutaminase Ab IgG <1.2 U/mL
== END 2023-09-03 12:54 | disposition home or self-care (01) ==
LOC: NCHCN 12:53
PROVIDERS: PCP Family Medicine; Visit Provider Family Medicine
DX: D64.9 Anemia, unspecified (principal)
CPT/HCPCS: 82784; 85027; 86364; 82607; 82728; 82746; 83540; 83550

== ENCOUNTER → 2023-10-17 12:45 | Outpatient (BNVA) | payer OTHER, SELFPAY | PROVIDERS: PCP Family Medicine; Referring Provider Family Medicine; Visit Provider Internal Medicine Cardiovascular Disease | DX: Z95.2 Presence of prosthetic heart valve (principal); Z95.0 Presence of cardiac pacemaker | CPT/HCPCS: 99213 ==

== ENCOUNTER 2023-12-05 11:09 | Outpatient (REF) | payer OTHER, SELFPAY ==
[2023-12-05 15:49] LABS: HCT 35.2 % (36.0-46.0); HGB 11.3 g/dL (11.2-15.7); MCH 27.2 pg (27.0-33.0); MCHC 32.1 % (32.0-36.0); MCV 85 fL (80-95); RBC 4.15 10^6/uL (3.93-5.22); RDW-SD 61.2 fL; WBC 9.33 10^3/uL (4.4-10.8)
[2023-12-05 16:18] LABS: Iron 36 ug/dL (50-170); Total Iron Binding Capacity 437 ug/dL (250-450); Transferrin Sat 8 % (15-50)
[2023-12-05 16:32] LABS: Hemoglobin A1C 9.3 % (<5.7); Platelet Count 176 10^3/uL (130-400); RDW 19.7 % (11.7-14.6)
[2023-12-05 17:06] LABS: ALT 43 U/L (14-59); AST 21 U/L (15-37); Alkaline Phosphatase 128 U/L (46-116); Anion Gap 10.8 mmol/L (3-11); BUN 27 mg/dL (7-18); Bilirubin, Total 0.1 mg/dL (0.2-1.0); CO2 23.2 mmol/L (21.0-32.0); CREATININE 1.1 mg/dL (0.55-1.02); Calcium 9.4 mg/dL (8.5-10.1); Chloride 102 mmol/L (98-107); Estimated GFR 54.39 (mL/min/1.73m2); Ferritin 12 ng/mL (8-252); Glucose 215 mg/dL (74-106); Potassium 4.8 mmol/L (3.5-5.1); Sodium 136 mmol/L (136-145); Total Protein 7.4 g/dL (6.4-8.2)
== END 2023-12-05 11:10 | disposition home or self-care (01) ==
LOC: NCHCN 11:09
PROVIDERS: PCP Family Medicine; Visit Provider Family Medicine
DX: E11.9 Type 2 diabetes mellitus without complications (principal); D50.9 Iron deficiency anemia, unspecified; R11.10 Vomiting, unspecified
CPT/HCPCS: 80053; 85027; 82728; 83036; 83540; 83550

== ENCOUNTER → 2023-12-12 00:20 | Outpatient (CLI) | payer OTHER, SELFPAY ==
--- NOTE | 2023-12-12 | DI.CT_ITS ---
Exam(s) CT CHEST WO EXAM: CT CHEST WO CLINICAL HISTORY: Primary lung nodule, RUL, R91.1. TECHNIQUE: Imaging protocol: Axial computed tomography images were obtained and coronal and sagittal reformatted images were created and reviewed. CONTRAST MATERIAL: Noncontrast COMPARISON: CT,PT PET CT EYE TO THIGH from 03/12/[address] CHEST WO from 05/28/[address] CHEST WO from 01/29/2023 FINDINGS: Pulmonary parenchyma: No consolidation. There has been interval increase in size of previously noted spiculated nodule in the right upper lobe now measuring 16 x 9 by 16 compared with 15 x 8 by 13 william meters on the prior exams. It also shows more nodular appearance. There is a small stable circumscr ibed nodule in the left lower lobe. Emphysema: None. Tracheobronchial tree: No mucous plugging. No bronchiectasis . Interstitial changes: None. Pleura: No effusion or pneumothorax. Heart: The heart is mildly dilated. The coronary arteries show mild calcifications. Aorta: Ascending aorta measures 3.7 cm mild atherosclerotic changes. Aortic valve prosthesis. Lymph nodes: No enlarged lymph nodes. Bones: Mild degenerative changes are seen. No evidence of compression fracture. Upper abdomen: Unremarkable. Soft tissues: Pacemaker over left pectoral muscle. IMPRESSION: Interval increase in size of right upper lobe spiculated mass. Biopsy recommended. Unexpected findings RADIATION DOSE DELIVERED: 419.97mGy.cm Total DLP 419.97mGy.cm Total DLP DATA REPOSITORY: All CT scans at this facility are submitted to the National Radiology Data Registry (NRDR) Dose Index Registry (DIR) with the [employer] (ACR). RADIATION OPTIMIZATION: All CT scans at this facility use at least one of these dose optimization te chniques: automated exposure control; mA and/or kV adjustment per patient size (includes targeted exa ms where dose is matched to clinical indication); or iterative reconstruction.
== END ==
PROVIDERS: PCP Family Medicine; Visit Provider Family Medicine
DX: R91.1 Solitary pulmonary nodule (principal)
CPT/HCPCS: 71250

== ENCOUNTER 2023-12-30 05:09 | Outpatient (CLI) | payer OTHER, SELFPAY ==
[2023-12-30] MEDS: Levalbuterol HFA 15 GM INH 4 PUFF IH (09:08)
[2023-12-30] MEDS: Inhaler, Assist Device 1 EACH MC (09:08)
--- NOTE | 2023-12-30 10:17 | W.PFT ---
Date of service: 12/30/23 Time of Service: 08:02 Pulmonary Function Test Result Indications: Lung nodule Interpretation Spirometry: There is no airflow limitation. No bronchodilator response. Lung Volumes: Normal lung volumes Diffusion Capacity: Normal diffusion Airway Pressure: Normal airways resistance Impression Normal pulmonary function testing Clinical Correlation therefore is recommended.
== END 2023-12-30 05:10 | disposition home or self-care (01) ==
LOC: RT 05:09
PROVIDERS: PCP Family Medicine; Visit Provider Internal Medicine Pulmonary Disease
DX: J44.9 Chronic obstructive pulmonary disease, unspecified (principal); R91.1 Solitary pulmonary nodule
CPT/HCPCS: 94060; 94726; 94729

== ENCOUNTER 2024-05-28 11:12 | Outpatient (REF) | payer OTHER, SELFPAY ==
[2024-05-28 18:12] LABS: HCT 34.4 % (36.0-46.0); HGB 11.2 g/dL (11.2-15.7); MCH 29.4 pg (27.0-33.0); MCHC 32.6 % (32.0-36.0); MCV 90 fL (80-95); MPV 10.4 fL (8.0-11.0); Platelet Count 191 10^3/uL (130-400); RBC 3.81 10^6/uL (3.93-5.22); RDW 14.6 % (11.7-14.6); WBC 6.99 10^3/uL (4.4-10.8)
[2024-05-28 18:22] LABS: Iron 35 ug/dL (50-170); Total Iron Binding Capacity 436 ug/dL (250-450)
[2024-05-28 18:33] LABS: Ferritin 13 ng/mL (8-252)
== END 2024-05-28 11:13 | disposition home or self-care (01) ==
LOC: NCHCN 11:12
PROVIDERS: PCP Family Medicine; Visit Provider Family Medicine
DX: D64.9 Anemia, unspecified (principal)
CPT/HCPCS: 85027; 82728; 83540; 83550

== ENCOUNTER 2024-06-14 02:11 | Outpatient (CLI) | payer OTHER, SELFPAY ==
--- NOTE | 2024-06-14 | DI.MAMMO_ITS ---
Exam(s) MAMMO SCREENING EXAM: MAMMO SCREENING CLINICAL HISTORY: SCREENING MAMMO Z12.31 TECHNIQUE: Mammograms were interpreted according to the usual protocol including computer analysis w Needle CAD system, tomosynthesis and C-view imaging. COMPARISON: 2013 through 2021 FINDINGS: The breasts are composed of scattered fibroglandular densities, Breast Density category B. The positioning of the left MLO view is somewhat suboptimal due to presence of pacemaker. No suspicious masses or suspicious microcalcifications are seen. No skin thickening or abnormal axillary lymph nodes are seen. There has been no significant change from prior exams. IMPRESSION: BI-RADS Category 1, Negative mammogram Yearly screening mammography is recommended. Breast Density - Category B, scattered fibroglandular densities. A negative radiographic report should not delay biopsy if a dominant or clinically suspicious mass is present. Up to ten percent of cancers are not identified on mammography. A negative report may reinforce clinical impression. Adenosis and dense breasts may obscure an underlying neoplasm. False positive reports average 6 to 10%. Patient will receive a letter notifying them of these results.
== END 2024-06-14 02:31 ==
LOC: DI 02:11
PROVIDERS: PCP Family Medicine; Visit Provider Family Medicine
DX: Z12.31 Encounter for screening mammogram for malignant neoplasm of breast (principal); R92.323 Mammographic fibroglandular density, bilateral breasts
CPT/HCPCS: 77063; 77067

== ENCOUNTER 2024-12-10 14:25 | Outpatient (REF) | payer MEDICARE, SELFPAY ==
[2024-12-10 15:27] LABS: MCH 26.1 pg (27.0-33.0); MCHC 29.4 % (32.0-36.0); MCV 89 fL (80-95); MPV 10.5 fL (8.0-11.0); Platelet Count 239 10^3/uL (130-400); RBC 2.22 10^6/uL (3.93-5.22); RDW-SD 48.6 fL; WBC 7.02 10^3/uL (4.4-10.8)
[2024-12-10 16:00] LABS: RDW 15.1 % (11.7-14.6)
[2024-12-10 16:04] LABS: HCT 19.7 % (36.0-46.0); HGB 5.8 g/dL (11.2-15.7)
[2024-12-10 16:07] LABS: ALT 32 U/L (14-59); AST 26 U/L (15-37); Albumin 3.6 g/dL (3.4-5.0); Alkaline Phosphatase 94 U/L (46-116); Anion Gap 11.4 mmol/L (3-11); BUN 25 mg/dL (7-18); Bilirubin, Total 0.1 mg/dL (0.2-1.0); CO2 25.6 mmol/L (21.0-32.0); CREATININE 0.9 mg/dL (0.55-1.02); Calcium 9.1 mg/dL (8.5-10.1); Chloride 105 mmol/L (98-107); Estimated GFR 68.77 (mL/min/1.73m2); Ferritin 4 ng/mL (8-252); Glucose 88 mg/dL (74-106); Potassium 5.3 mmol/L (3.5-5.1); Sodium 142 mmol/L (136-145); TSH 2.18 uIU/mL (0.36-3.74); Total Protein 6.9 g/dL (6.4-8.2)
[2024-12-10 16:48] LABS: COMMENT (LAB VIEW ONLY) 110.37 mg/dL
[2024-12-10 16:49] LABS: Microalb ug/mg Crea 203.5 ug/mg Cr
== END 2024-12-10 14:26 | disposition home or self-care (01) ==
LOC: NCHCN 14:25
PROVIDERS: PCP Family Medicine; Visit Provider Family Medicine
DX: E11.9 Type 2 diabetes mellitus without complications (principal)
CPT/HCPCS: 80053; 85027; 82043; 82570; 82728; 84443

== ENCOUNTER 2024-12-10 17:15 | Emergency (ER) | payer MEDICARE, SELFPAY ==
[2024-12-10] VITALS (52 sets, daily range): BP systolic 111–174; BP diastolic 44–112; PULSE 58–106; RESP 11–23; TEMP 36.1–36.8; O2SAT 95–98
--- NOTE | 2024-12-10 17:45 | RT.EKG_ITS ---
APPROVED REPORT Exam: Resting ECG Reason for Exam: baseline/screening Patient Location: E HR:67 bpm ECG Measurements Heart Rate 67 AXIS [place] 175 P [id number] QRSd 129 QRS 24 QT 420 T 123 QTc 445 Conclusion Atrial-paced complexes...other complexes also detected Left bundle branch block...QRSd>120, broad/notched R
--- NOTE | 2024-12-10 17:45 | DI.CT_ITS ---
Exam(s) CT ABDOMEN PELVIS CTA EXAM: CT ABDOMEN PELVIS CTA CLINICAL HISTORY: profound anemia; GI bleed?. TECHNIQUE: Imaging Protocol: Axial computed tomography images with coronal and sagittal reformatted images were created and reviewed CONTRAST MATERIAL: Intravenous: Omnipaque 350 Contrast volume:100 ml Oral: None COMPARISON: No exams were available for comparison FINDINGS: Visualized lung bases are clear. ABDOMEN: GI: There is no intraluminal extravasation of intravenous contrast into the gut to identify a site of active GI bleeding. There is no ascites. No evidence of bowel obstruction, free air, nor abscess. There are no ischemic appearing bowel loops. There is abundant fecal material noted throughout the colon but no rectal distension. There is no obvious colitis pattern. No evidence of appendicitis. No significant diverticular disease. AORTA: There is no evidence of abdominal aortic aneurysm nor dissection.There is some peripheral calc ification in and plaque in the infrarenal abdominal aorta as well as within the common iliac arteries . There is, however, no evidence of tight stenosis in these vessels and no aneurysmal dilatation of the iliac vessels nor of the common femoral arteries.Also no evidence of dissection flaps. The modesta c and superior mesenteric arteries are patent. The inferior mesenteric artery is patent. No signifi cant stenosis evident in the renal arteries. LIVER: There are no focal hepatic lesions nor dilatation of intrahepatic ducts. GALLBLADDER/BILIARY: No obvious gallbladder pathology. CBD is not dilated. PANCREAS: No evidence of pancreatic mass nor dilatation of the pancreatic duct. SPLEEN: Spleen is not enlarged. There are no intrasplenic lesions. Solitary benign calcified granul patito noted in the spleen. The splenic and portal veins are patent. ADRENALS: Mild thickening of both limbs of both adrenal glands consistent adrenal hyperplasia. No fo luis antonio nodules/masses evident within the adrenal glands. KIDNEYS: There are benign cortical cysts in both kidneys. The largest in the right kidney is in the superior pole and measures 3 cm. The largest cyst in the left kidney is in the lateral cortex and me asures 1.5 cm. In addition, there is a 1.1 cm probable hemorrhagic cyst in the mid-inferior aspect o f the left kidney. There is some surrounding perinephric streaking at this level. There are no radi opaque renal calculi. No hydronephrosis nor hydroureter.. LYMPH NODES: There is no retroperitoneal nor para-aortic adenopathy. No obvious mesenteric masses. ABDOMINAL WALL: No evidence of significant anterior abdominal wall hernia. PELVIS: LYMPH NODES: There is no intrapelvic nor inguinal adenopathy. GI: No evidence of appendicitis.No evidence of sigmoid diverticulitis. URINARY BLADDER: No calculi nor masses evident. The pelvic ureters are not dilated. REPRODUCTIVE: Uterus and adnexal regions appear age-appropriate. OSSEOUS: No significant osseous lesions. Disc space narrowing most prominent at L5-S1 level. No fractures. No listhesis. IMPRESSION: 1. There is no demonstration of acute active GI bleed site on this study. 2. Increased amount of fecal material throughout the colon consistent with probable constipation. No evidence of significant diverticular disease and no obvious colitis pattern. 3. Bilateral adrenal hyperplasia. No adrenal masses. 4. In addition to simple cysts in both kidneys there also appears to be a hemorrhagic cyst in the inf erior pole the left kidney with some surrounding streaking. Preliminary virtual Radiology report was reviewed RADIATION DOSE DELIVERED: 927.95mGy.cm Total DLP DATA REPOSITORY: All CT scans at this facility are submitted to the National Radiology Data Registry (NRDR) Dose Index Registry (DIR) with the [employer] (ACR). RADIATION OPTIMIZATION: All CT scans at this facility use at least one of these dose optimization te chniques: automated exposure control; mA and/or kV adjustment per patient size (includes targeted exa ms where dose is matched to clinical indication); or iterative reconstruction.
[2024-12-10 18:12] LABS: Abs Immature Grans 0.04 10^3/uL (0.0-0.06); Absolute Basophil Count 0.02 10^3/uL (0.0-0.2); Absolute Eosinophil Count 0.13 10^3/uL (0.0-0.7); Absolute Lymphocyte Count 1.15 10^3/uL (1.2-3.4); Absolute Monocyte Count 0.73 10^3/uL (0.1-0.8); Absolute Neutrophil Count 4.01 10^3/uL (1.2-6.7); Basophils % 0.3 %; Eosinophils % 2.1 %; Immature Grans % 0.7 %; Lactate 3.4 mmol/L (<or=2.0); Lymphocytes % 18.9 %; MCH 24.9 pg (27.0-33.0); MCHC 28.7 % (32.0-36.0); MCV 87 fL (80-95); MPV 9.5 fL (8.0-11.0); Platelet Count 219 10^3/uL (130-400); RBC 2.33 10^6/uL (3.93-5.22); RDW 15.4 % (11.7-14.6); RDW-SD 48.3 fL; WBC 6.08 10^3/uL (4.4-10.8)
[2024-12-10 18:15] LABS: HCT 20.2 % (36.0-46.0); HGB 5.8 g/dL (11.2-15.7)
--- NOTE | 2024-12-10 18:26 | W.ED.GENAD ---
Discharge Plan Disposition Patient Disposition: Home Condition: Stable Discharge Details Clinical Impression: Upper GI bleeding, Anemia Primary Care Provider: Angélica Koch ED Provider: Henry Mendes Home Meds and New Rx's Prescriptions: New pantoprazole 40 mg tablet,delayed release (DR/EC) 40 mg PO DAILY 30 Days Qty: 30 0RF Continued hydrochlorothiazide 12.5 MG capsule 25 mg PO DAILY metformin [Glucophage XR] 500 MG tablet extended release 24 hr 1,000 mg PO BID rosuvastatin [Crestor] 20 MG tablet 20 mg PO DAILY CHANTIX KIT DIRECTED 0RF levothyroxine 75 mcg capsule 75 mcg PO DAILY lisinopril 40 mg tablet 40 mg PO DAILY liraglutide [Victoza 2-Jose] 0.6 mg/0.1 mL (18 mg/3 mL) pen injector 0.6 mg subcut DAILY diltiazem HCl 60 mg capsule,extended release 12 hr 60 mg PO BID carbamazepine 200 mg tablet 400 mg PO BID cholecalciferol (vitamin D3) 50 mcg (2,000 unit) capsule 50 mcg PO DAILY sertraline 50 mg tablet 50 mg PO DAILY Levemir FlexTouch U100 Insulin 100 unit/mL (3 mL) insulin pen 65 unit subcut QHS aspirin 81 mg tablet,delayed release (DR/EC) 81 mg PO DAILY Ozempic 0.25 mg or 0.5 mg (2 mg/3 mL) pen injector 0.25 mg SUBCUT .qweekly Discharge Instructions Instructions: Anemia caused by low iron, Pantoprazole, GI bleed Additional Instructions: You were seen in the emergency department for your weakness with abnormal lab values drawn this morning with a low hemoglobin of 5.8, we repeated this value on arrival and it was still 5.8 this is likely a very slow chronic GI bleed from some sort of ulcer in your upper GI tract. I am starting you on a medicine called Protonix that will help calm down your stomach acid enough for you to naturally heal this ulcer over a long period of time, in the meantime I have placed a referral for you to see our surgery practice where they can perform an upper endoscopy. You have some evidence of constipation with a moderate amount of stool seen on your CT scan but no major sign of hemorrhage anywhere in the GI tract. You could try MiraLAX to relieve constipation, you could resume your iron supplements as you have a low iron on labs today. Please follow-up with your primary care provider so they can recheck your hemoglobin in the short-term and possibly order outpatient transfusions. Please return to the emergency department at once for any profound dizziness or weakness or paleness, any intractable nausea or vomiting of dark or bloody vomitus, any intractable diarrhea of black tarry stools. Referrals: [facility] [Provider Group] Angélica Koch MD [Primary Care Provider] - HPI General Date/Time Provider Initiated Documentation: 12/10/24 17:25. HPI Narrative: 69 year-old female presents to ED today by POV/ambulating with a chief complaint of abnormal labs by PCP at [facility], hemoglobin of 5.8, but patient states she has been asymptomatic, perhaps a little fatigued but going about her days as normal. 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 Severity is described as mild. Palliating factors include nothing specific attempted. Provoking factors include nothing specific. Patient not anticoagulated. Related Data Home Medications ?Medication ?Instructions ?Recorded ?Confirmed hydrochlorothiazide 12.5 mg capsule 25 mg PO DAILY 09/06/13 12/10/24 metformin 500 mg tablet,extended 1,000 mg PO BID 09/06/13 12/10/24 release 24 hr (Glucophage XR) rosuvastatin 20 mg tablet (Crestor) 20 mg PO DAILY 09/06/13 12/10/24 carbamazepine 200 mg tablet 400 mg PO BID 02/05/22 12/10/24 cholecalciferol (vitamin D3) 50 50 mcg PO DAILY 02/05/22 12/10/24 mcg (2,000 unit) capsule diltiazem HCl 60 mg 60 mg PO BID 02/05/22 12/10/24 capsule,extended release 12 hr levothyroxine 75 mcg capsule 75 mcg PO DAILY 02/05/22 12/10/24 liraglutide 0.6 mg/0.1 mL (18 mg/3 0.6 mg subcut DAILY 02/05/22 12/10/24 mL) subcutaneous pen injector (Victoza 2-Jose) lisinopril 40 mg tablet 40 mg PO DAILY 02/05/22 12/10/24 sertraline 50 mg tablet 50 mg PO DAILY 02/05/22 12/10/24 insulin detemir U-100 100 unit/mL 65 unit subcut QHS 04/17/23 12/10/24 (3 mL) subcutaneous pen (Levemir FlexTouch U-100 Insulin) aspirin 81 mg tablet,delayed 81 mg PO DAILY 09/19/23 12/10/24 release pantoprazole 40 mg tablet,delayed 40 mg PO DAILY 30 days #30 tabs 12/10/24 release semaglutide 0.25 mg or 0.5 mg (2 0.25 mg subcut .qweekly 12/10/24 12/10/24 mg/3 mL) subcutaneous pen injector (Ozempic) Previous Rx's ?Medication ?Instructions ?Recorded pantoprazole 40 mg tablet,delayed 40 mg PO DAILY 30 days #30 tabs 12/10/24 release Allergies Allergy/AdvReac Type Severity Reaction Status Date / Time No Known Allergies Allergy Unverified 12/10/24 17:19 General Stated Complaint: GenMedical NEPTALI: 3 Review of Systems All systems reviewed & are unremarkable except as noted in HPI and below Exam Narrative Exam Narrative: GENERAL APPEARANCE: Well-nourished, non-toxic, awake and alert, atraumatic, no acute distress. SKIN: Warm, pink, dry, intact, without rashes/lesions/ulcerations. HEAD: Normocephalic, atraumatic, normal hair distribution for gender/age. EYES: Normal conjunctiva, no exudates on lids/lashes. ENT: Nares patent, no circumoral cyanosis, no facial swelling NECK: Supple, trachea midline, painless cervical ROM. LUNGS/CHEST: Lungs CTA bilaterally-no rhonchi/rales/wheezes diffusely, non-labored respirations, normal A/P diameter, symmetrical expansion, no chest wall deformity HEART (CV/PV): Regular rate and rhythm without murmur, no peripheral edema, no JVD. ABDOMEN: Soft, non-distended, no guarding, no tenderness. MSK: Normal ROM, no swelling/deformity to bilateral UEs or LEs, moving all extremities without weakness, no cyanosis, spine midline without tenderness, normal curvature. NEURO: Mental Status AAOx4 - alert to person, place, time, events No facial droop, no forehead involvement. Motor: No focal weakness - strength 5/5 in bilateral UEs and LEs, proximal and distal, symmetric. Sensory: sensation intact to light touch globally. Gait normal: patient ambulated without ataxia into ED room. PSYCH: euthymic, cooperative, pleasant, appropriate speech Course Vital Signs Vital signs: Vital Signs Temperature 36.8 C 12/10/24 17:16 Pulse 93 H 12/10/24 17:16 Respiratory Rate 18 12/10/24 17:16 Blood Pressure 174/68 H 12/10/24 17:16 Pulse Oximetry 95 12/10/24 17:16 Temperature 36.8 C 12/10/24 17:21 Temperature Source Oral 12/10/24 17:21 Pulse 93 H 12/10/24 17:21 Respiratory Rate 18 12/10/24 17:21 Blood Pressure 174/68 H 12/10/24 17:21 Pulse Oximetry 95 12/10/24 17:21 Lab/Test Results Lab/Test Results: Laboratory Tests Range/Units 12/10/24 12/10/24 08:05 17:59 WBC (4.4-10.8) 10^3/uL 6.08 RBC (3.93-5.22) 10^6/uL 2.33 L Hgb (11.2-15.7) g/dL 5.8 L* Hct (36.0-46.0) % 20.2 L* MCV (80-95) fL 87 MCH (27.0-33.0) pg 24.9 L MCHC (32.0-36.0) % 28.7 L RDW (11.7-14.6) % 15.4 H Plt Count (130-400) 10^3/uL 219 MPV (8.0-11.0) fL 9.5 Immature Gran % % 0.7 Neutrophils % % 66.0 Lymphocytes % % 18.9 Monocytes % % 12.0 Eosinophils % % 2.1 Basophils % % 0.3 Nucleated RBC % (0.0-0.3) % 0.0 Absolute Neutrophils (1.2-6.7) 10^3/uL 4.01 Absolute Lymphocytes (1.2-3.4) 10^3/uL 1.15 L Absolute Monocytes (0.1-0.8) 10^3/uL 0.73 Absolute Eosinophils (0.0-0.7) 10^3/uL 0.13 Absolute Basophils (0.0-0.2) 10^3/uL 0.02 VBG Lactate (<or=2.0) mmol/L 3.4 H* Blood Type Recheck A Negative Medical Decision Making This dictation utilizes [id number] dictation software and may contain unedited grammatical errors. 69 year-old female presents to ED today by POV/ambulating with a chief complaint of abnormal labs by PCP at [facility], hemoglobin of 5.8, but patient states she has been asymptomatic, perhaps a little fatigued but going about her days as normal. 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 Severity is described as mild. Palliating factors include nothing specific attempted. Provoking factors include nothing specific. Events leading up to the incident/Associated Symptoms: noted in chart that patient stopped taking iron supplements. Patients' medical history: T2DM, vitamin B12 deficiency, constipation, tobacco use, CKD, aortic regurgitation with aortic stenosis and bicuspid aortic valve status post TAVR and pacemaker, mass of left parotid gland. Family and social history: Noncontributory. Pertinent exam findings / vital signs include benign abdomen, benign cardiopulmonary exam, nontoxic and afebrile, no hypotension. Differential / pathologies of concern include GI bleeding, severe anemia. Diagnostic studies of: -CBC, CMP, PT/PTT, lactate, troponin, TSH, type and screen, CTA ABD/pelvis with contrast, EKG. Laboratory staff added the outpatient PCP orders to this ED evaluation of FE and TIBC as well as reticulocyte count, haptoglobin. - CBC shows hemoglobin of 5.8 the same as outpatient draw at 8 AM this morning, do not suspect severe acute bleeding, hematocrit 20.2, PLTs 219 - Coags benign - Lactate 3.4 likely in the setting of long-term chronic GI bleeding - CMP shows creatinine of 1.2 at baseline, no major electrolyte abnormalities - TSH within normal limits - Type and screen shows A NEG - CTA shows no signs of significant gastrointestinal hemorrhages and shows a moderate amount of stool throughout the colon. Interventions of: -2 units pRBCs, 40mg IVP protonix. ED Course/Assessment/Plan: 69-year-old female presents with chronic fatigue and a history of chronic iron deficiency anemia apparently there is note from PCP that she had stopped taking her iron supplements due to black stools, she notes significant use of Tums, likely chronic upper GI bleeding, she has not dropped any hemoglobin between outpatient lab draw earlier this morning and this evening. I did provide her 2 units of packed red blood cells and placed her on the list for upper endoscopy/colonoscopy with general surgery practice next week, I stressed strict return criteria for profound weakness, intractable nausea or vomiting especially with bright red blood or coffee grounds persistently, black tarry stools especially with weakness. Started the patient on daily Protonix. Patient is going to call her doctor for resumption of iron pills, take the Rx'd protonix, and some Miralax for constipation. She will also seek a referral to surgery for endoscopy. Findings not consistent with acute GI hemorrhage, sepsis, electrolyte abnormality, profound lethargy. Disposition of upper GI bleeding, anemia. Patient verbalized understanding of the plan and return to ED criteria and engaged in shared decision making. Medical Records Medical records reviewed: Yes I reviewed the patient's medical records. Imaging Data Radiologic Study: Attestation: I personally reviewed and interpreted this imaging study as follows: Imaging: CT Scan Radiologist's impression: Exam: CTA Abdomen and Pelvis Without And With Contrast Exam date and time: 12/10/2024 7:33 PM Age: 69 years old Clinical indication: Profound anemia; Gi bleed? J TECHNIQUE: Imaging protocol: Computed tomographic angiography of the abdomen and pelvis without and with contrast. Exam focused on the arteries. 3D rendering (Not supervised by radiologist): MIP and/or 3D reconstructed images were created by the technologist. Radiation optimization: All CT scans at this facility use at least one of these dose optimization techniques: automated exposure control; mA and/or kV adjustment per patient size (includes targeted exams where dose is matched to clinical indication); or iterative reconstruction. Contrast material: [id number]; Contrast volume: 100 ml; Contrast route: INTRAVENOUS (IV); COMPARISON: PT PET CT EYE TO THIGH 03/12/2022 10:58 AM FINDINGS: Tubes, catheters and devices: Partially visualized pacemaker leads within the right cardiac chambers. Heart: Decreased attenuation of the intracardiac blood pool, with visualization of the interventricular septum, suggesting anemia. Aorta: Atherosclerotic disease of the abdominal aorta and iliac arteries. Celiac trunk and mesenteric arteries: No occlusion or significant stenosis. Renal arteries: No occlusion or significant stenosis. Right iliac arteries: No occlusion or significant stenosis. Left iliac arteries: No occlusion or significant stenosis. Liver: Increased attenuation of the hepatic parenchyma, which is a nonspecific finding, but can be seen with iron deposition related disorders. Mild hepatomegaly. Gallbladder and biliary ducts: Unremarkable. No calcified stones. No ductal dilation. Pancreas: Unremarkable. No mass. No ductal dilation. Spleen: Unremarkable. No splenomegaly. Adrenal glands: Mild bilateral adrenal hyperplasia. Kidneys and ureters: Bilateral simple renal cysts, for which no further evaluation necessary. Stomach and bowel: Moderate amount of stool throughout the colon, compatible with constipation. No obstruction. Appendix: Appendix normal. Intraperitoneal space: Unremarkable. No free air. No significant fluid collection. Lymph nodes: Unremarkable. No enlarged lymph nodes. Urinary bladder: Unremarkable. No mass. Reproductive: Unremarkable as visualized. Bones/joints: No acute fracture. Soft tissues: Unremarkable. IMPRESSION: 1. Moderate amount of stool throughout the colon, compatible with constipation. No obstruction. 2. No evidence of acute gastrointestinal hemorrhage. Lab Data Lab results reviewed: Yes I reviewed the patient's lab results. Labs: Laboratory Tests Range/Units 12/10/24 12/10/24 08:05 17:59 WBC (4.4-10.8) 10^3/uL 6.08 RBC (3.93-5.22) 10^6/uL 2.33 L Hgb (11.2-15.7) g/dL 5.8 L* Hct (36.0-46.0) % 20.2 L* MCV (80-95) fL 87 MCH (27.0-33.0) pg 24.9 L MCHC (32.0-36.0) % 28.7 L RDW (11.7-14.6) % 15.4 H Plt Count (130-400) 10^3/uL 219 MPV (8.0-11.0) fL 9.5 Immature Gran % % 0.7 Neutrophils % % 66.0 Lymphocytes % % 18.9 Monocytes % % 12.0 Eosinophils % % 2.1 Basophils % % 0.3 Nucleated RBC % (0.0-0.3) % 0.0 Absolute Neutrophils (1.2-6.7) 10^3/uL 4.01 Absolute Lymphocytes (1.2-3.4) 10^3/uL 1.15 L Absolute Monocytes (0.1-0.8) 10^3/uL 0.73 Absolute Eosinophils (0.0-0.7) 10^3/uL 0.13 Absolute Basophils (0.0-0.2) 10^3/uL 0.02 PT (9.1-11.1) sec 10.7 INR (0.9-1.1) 1.1 APTT (20.6-30.2) sec 22.8 VBG Lactate (<or=2.0) mmol/L 3.4 H* Sodium (136-145) mmol/L 141 Potassium (3.5-5.1) mmol/L 4.9 Chloride (98-107) mmol/L 103 Carbon Dioxide (21.0-32.0) mmol/L 25.5 Anion Gap (3-11) mmol/L 12.5 H BUN (7-18) mg/dL 26 H Creatinine (0.55-1.02) mg/dL 1.2 H Est GFR (CKD-EPI 2020) (mL/min/1.73m2) 48.70 Glucose (74-106) mg/dL 169 H Calcium (8.5-10.1) mg/dL 9.1 Iron (50-170) ug/dL 11 L TIBC (250-450) ug/dL 517 H Total Bilirubin (0.2-1.0) mg/dL 0.1 L AST (15-37) U/L 23 ALT (14-59) U/L 34 Alkaline Phosphatase (46-116) U/L 100 Troponin I (<or=51) ng/L 16 Total Protein (6.4-8.2) g/dL 7.8 Albumin (3.4-5.0) g/dL 3.8 TSH (0.36-3.74) uIU/mL 2.89 ABO/Rh A Negative Blood Type Recheck A Negative Antibody Screen NEGATIVE Crossmatch See Detail Quality:SDOH Health Related Social Needs: No Data to Display PFSH All Active Problems (Updated 12/10/24 @ 20:40 by PATRICIA Cole) Anemia (Chronic) Upper GI bleeding (Acute) Pacemaker (Acute) Aortic stenosis (Chronic) 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 (Acute) Enlarged lymph node in neck (Acute) Medical History Left-sided trigeminal neuralgia Anxiety Type 2 diabetes mellitus Lung nodule Cervical lymphadenopathy Vitamin B12 deficiency Constipation Fibrocystic breast changes Tobacco use Eczema Hypothyroidism CKD (chronic kidney disease) Aortic regurgitation Moderate aortic stenosis Bicuspid aortic valve Situational anxiety HLD (hyperlipidemia) HTN (hypertension) Microalbuminuria Diabetic retinopathy Diabetes mellitus Osteoporosis Surgical History S/P TAVR (transcatheter aortic valve replacement) [facility] 09/12/23 Social History Smoking/Tobacco Use Status: Current every day Smoking risk assessment performed?: Yes Alcohol Intake: never Drug use: Never Substance use type: does not use
[2024-12-10 18:35] LABS: INR 1.1 (0.9-1.1); PTT Activated 22.8 sec (20.6-30.2); Prothrombin Time 10.7 sec (9.1-11.1)
[2024-12-10 18:43] LABS: ALT 34 U/L (14-59); AST 23 U/L (15-37); Albumin 3.8 g/dL (3.4-5.0); Alkaline Phosphatase 100 U/L (46-116); Anion Gap 12.5 mmol/L (3-11); BUN 26 mg/dL (7-18); Bilirubin, Total 0.1 mg/dL (0.2-1.0); CO2 25.5 mmol/L (21.0-32.0); CREATININE 1.2 mg/dL (0.55-1.02); Calcium 9.1 mg/dL (8.5-10.1); Chloride 103 mmol/L (98-107); Glucose 169 mg/dL (74-106); Potassium 4.9 mmol/L (3.5-5.1); Sodium 141 mmol/L (136-145); TSH (W/Ref FT4) 2.89 uIU/mL (0.36-3.74); Total Protein 7.8 g/dL (6.4-8.2); Troponin I 16 ng/L (<or=51)
[2024-12-10] MEDS: Normal Saline - Diluent 50 ML VIAL IJ (19:41)
[2024-12-10] MEDS: Omnipaque 350 MG/ML 100 ML BTL IJ (19:41)
[2024-12-10 20:17] LABS: Iron 11 ug/dL (50-170); Total Iron Binding Capacity 517 ug/dL (250-450)
[2024-12-10] MEDS: Pantoprazole 40 MG VIAL IVP (23:30)
[2024-12-13 10:37] LABS: Haptoglobin 212 mg/dL (32-197)
--- NOTE | 2024-12-13 11:53 | DI.VRAD_ITS ---
PROCEDURE INFORMATION: Exam: CTA Abdomen and Pelvis Without And With Contrast Exam date and time: 12/10/2024 7:33 PM Age: 69 years old Clinical indication: Profound anemia; Gi bleed? J TECHNIQUE: Imaging protocol: Computed tomographic angiography of the abdomen and pelvis without and with contrast. Exam focused on the arteries. 3D rendering (Not supervised by radiologist): MIP and/or 3D reconstructed images were created by the technologist. Radiation optimization: All CT scans at this facility use at least one of these dose optimization techniques: automated exposure control; mA and/or kV adjustment per patient size (includes targeted exams where dose is matched to clinical indication); or iterative reconstruction. Contrast material: [id number]; Contrast volume: 100 ml; Contrast route: INTRAVENOUS (IV); COMPARISON: PT PET CT EYE TO THIGH 03/12/2022 10:58 AM FINDINGS: Tubes, catheters and devices: Partially visualized pacemaker leads within the right cardiac chambers. Heart: Decreased attenuation of the intracardiac blood pool, with visualization of the interventricular septum, suggesting anemia. Aorta: Atherosclerotic disease of the abdominal aorta and iliac arteries. Celiac trunk and mesenteric arteries: No occlusion or significant stenosis. Renal arteries: No occlusion or significant stenosis. Right iliac arteries: No occlusion or significant stenosis. Left iliac arteries: No occlusion or significant stenosis. Liver: Increased attenuation of the hepatic parenchyma, which is a nonspecific finding, but can be seen with iron deposition related disorders. Mild hepatomegaly. Gallbladder and biliary ducts: Unremarkable. No calcified stones. No ductal dilation. Pancreas: Unremarkable. No mass. No ductal dilation. Spleen: Unremarkable. No splenomegaly. Adrenal glands: Mild bilateral adrenal hyperplasia. Kidneys and ureters: Bilateral simple renal cysts, for which no further evaluation necessary. Stomach and bowel: Moderate amount of stool throughout the colon, compatible with constipation. No obstruction. Appendix: Appendix normal. Intraperitoneal space: Unremarkable. No free air. No significant fluid collection. Lymph nodes: Unremarkable. No enlarged lymph nodes. Urinary bladder: Unremarkable. No mass. Reproductive: Unremarkable as visualized. Bones/joints: No acute fracture. Soft tissues: Unremarkable. IMPRESSION: 1. Moderate amount of stool throughout the colon, compatible with constipation. No obstruction. 2. No evidence of acute gastrointestinal hemorrhage. Dictated and Authenticated by: Tulio Novak MD. Orderin Cinthya Figueroa MD
[2024-12-15 09:09] LABS: Misc Referral (UVM) See Comments
== END 2024-12-10 23:31 | disposition home or self-care (01) ==
PROVIDERS: Emergency Provider Physician Assistant; PCP Family Medicine
DX: K92.2 Gastrointestinal hemorrhage, unspecified (principal); D64.9 Anemia, unspecified; E11.22 Type 2 diabetes mellitus with diabetic chronic kidney disease; I12.9 Hypertensive chronic kidney disease with stage 1 through stage 4 chronic kidney disease, or unspecified chronic kidney disease; N18.9 Chronic kidney disease, unspecified; E78.5 Hyperlipidemia, unspecified; Z95.2 Presence of prosthetic heart valve; F17.210 Nicotine dependence, cigarettes, uncomplicated; Z79.82 Long term (current) use of aspirin; Z79.4 Long term (current) use of insulin; Z79.84 Long term (current) use of oral hypoglycemic drugs; Z79.85 Long-term (current) use of injectable non-insulin antidiabetic drugs
CPT/HCPCS: 36415; 36430; 80053; 85045; 86850; 86900; 86901; 86920; 93005; 96374; 99285; 74174; 83010; 83540; 83550; 83605; 84443; 84484; 85014; 85018; 85025; 85610; 85730; 93010; J2470; J3490; P9016

== ENCOUNTER 2024-12-15 11:34 | Outpatient (REF) | payer MEDICARE, SELFPAY ==
[2024-12-15 15:42] LABS: HCT 31.9 % (36.0-46.0); HGB 9.8 g/dL (11.2-15.7); MCH 26.9 pg (27.0-33.0); MCHC 30.7 % (32.0-36.0); MCV 88 fL (80-95); MPV 10.4 fL (8.0-11.0); Platelet Count 190 10^3/uL (130-400); RBC 3.64 10^6/uL (3.93-5.22); RDW-SD 51.4 fL; WBC 5.94 10^3/uL (4.4-10.8)
== END 2024-12-15 11:35 | disposition home or self-care (01) ==
LOC: NCHCN 11:34
PROVIDERS: PCP Family Medicine; Visit Provider Family Medicine
DX: D64.9 Anemia, unspecified (principal)
CPT/HCPCS: 85027

== ENCOUNTER → 2025-01-05 09:45 | Outpatient (BNVA) | payer MEDICARE, SELFPAY | PROVIDERS: PCP Family Medicine; Referring Provider Family Medicine; Visit Provider Physical Therapy Assistant | DX: D64.9 Anemia, unspecified (principal) | CPT/HCPCS: 99214 ==

== ENCOUNTER → 2025-03-03 09:28 | Outpatient (BNVA) | payer MEDICARE, SELFPAY | PROVIDERS: PCP Family Medicine; Referring Provider Family Medicine; Visit Provider Internal Medicine Cardiovascular Disease | DX: Z95.2 Presence of prosthetic heart valve (principal); Z95.0 Presence of cardiac pacemaker | CPT/HCPCS: 99213 ==

== ENCOUNTER 2025-04-15 16:00 | Outpatient (REF) | payer MEDICARE, SELFPAY ==
[2025-04-15 16:53] LABS: HCT 38.3 % (36.0-46.0); HGB 12.2 g/dL (11.2-15.7); MCH 28.5 pg (27.0-33.0); MCHC 31.9 % (32.0-36.0); MCV 90 fL (80-95); MPV 10.6 fL (8.0-11.0); Platelet Count 208 10^3/uL (130-400); RBC 4.28 10^6/uL (3.93-5.22); RDW 15.5 % (11.7-14.6); RDW-SD 50.2 fL; WBC 7.48 10^3/uL (4.4-10.8)
[2025-04-15 17:25] LABS: Anion Gap 12.0 mmol/L (3-11); BUN 26 mg/dL (7-18); CO2 26.0 mmol/L (21.0-32.0); Calcium 9.2 mg/dL (8.5-10.1); Chloride 103 mmol/L (98-107); Estimated GFR 54.06 (mL/min/1.73m2); Ferritin 13 ng/mL (8-252); Glucose 130 mg/dL (74-106); Potassium 5.1 mmol/L (3.5-5.1); Sodium 141 mmol/L (136-145)
[2025-04-15 17:46] LABS: Iron 82 ug/dL (50-170); Total Iron Binding Capacity 418 ug/dL (250-450)
[2025-04-15 17:52] LABS: Hemoglobin A1C 7.1 % (<5.7)
== END 2025-04-15 16:01 | disposition home or self-care (01) ==
LOC: NCHCN 16:00
PROVIDERS: PCP Family Medicine; Visit Provider Family Medicine
DX: D50.9 Iron deficiency anemia, unspecified (principal); N18.31 Chronic kidney disease, stage 3a; E11.9 Type 2 diabetes mellitus without complications
CPT/HCPCS: 80048; 85027; 82728; 83036; 83540; 83550

== ENCOUNTER → 2025-05-12 03:41 | Outpatient (CLI) | payer MEDICARE, SELFPAY ==
--- NOTE | 2025-05-12 | DI.DEXA_ITS ---
Exam(s) XR DEXA BONE DENSITY W/WO GRACIE EXAM: XR DEXA BONE DENSITY W/WO GRACIE CLINICAL HISTORY: ASYMPTOMATIC MENOPAUSAL STATE Z78.0 SCREENING FOR OSTEOPOROSIS TECHNIQUE: Routine DEXA evaluation of the lumbar spine, hip, or forearm. COMPARISON: CR XR DEXA BONE DENSITY W/WO GRACIE from 01/24/2022 FINDINGS: Performed on a HoloGibberin unit. Lateral image: No compression fracture evident. Lumbar Spine total T-score: -0.6 which is within normal range. Prior reading in January 2022 was -0.8. Hip total T-score:- 3.2 which is osteoporosis range. Prior reading in 2021 was -3.1, also osteoporosis range. Independent reading at the femoral neck level as -3.1 which is also osteoporosis range. Prior reading at the femoral neck level in 2021 was -3.2. Forearm total T-score: -0.9 which is normal range. This is identical reading to January 2022. IMPRESSION: Bone mineral density measures in the osteoporosis range for the hip, similar to the January 2022 study.. Fracture risk is high at the hip level. Bone mineral density measures in the normal range for the lumbar spine and forearm/wrist, similar to previous 2021 study. Note: Any spine fracture indicates 5x risk for subsequent spine fracture and 2x risk for subsequent hip fracture. World Health Organization criteria for BMD interpretation classify patients: Normal...... T- Score at or above -1.0 Osteopenic... T- Score between -1.0 and -2.5 Osteoporosis... T-Score at or below -2.5
== END ==
PROVIDERS: PCP Family Medicine; Visit Provider Family Medicine
DX: M81.0 Age-related osteoporosis without current pathological fracture (principal); Z78.0 Asymptomatic menopausal state
CPT/HCPCS: 77080